=== PATIENT | male | born 2000 | race Caucasian/White ===

== ENCOUNTER 2019-08-26 23:52 | Emergency (ER) | payer SELFPAY ==
[~2019-08-26] VITALS: Ht 162.6 cm; Wt 59.0 kg
[2019-08-26 23:57] VITALS: Ht 162.6 cm; Wt 59.0 kg
[2019-08-27 00:34] LABS: BASOPHIL % 0.4 % (0-2); PLATELET COUNT 325 x10^3mcL (130-400); RED CELL DISTRIBUTION WIDTH 12.3 % (11.5-14.5)
[2019-08-27 00:54] LABS: CALCIUM 8.9 mg/dL (8.5-10.1); CARBON DIOXIDE 30.8 mmol/L (21-32); CHLORIDE SERUM 98 mmol/L (98-107); CREATININE SERUM 1.2 mg/dL (0.7-1.3); GFR1 > 60 mL/min; GLUCOSE SERUM 111 mg/dL (74-106); POTASSIUM SERUM 3.7 mmol/L (3.5-5.1); SODIUM SERUM 137 mmol/L (136-145)
[2019-08-27 00:59] LABS: ALBUMIN 4.6 g/dL (3.4-5.0); ALKALINE PHOSPHATASE 65 U/L (46-116); ALT/SGPT 17 U/L (16-63); AST/SGOT 15 U/L (15-37); BILIRUBIN TOTAL 0.6 mg/dL (0.20-1.00); LIPASE 56 IU/L (73-393)
[2019-08-27 01:00] LABS: TOTAL PROTEIN, SERUM 8.3 g/dL (6.4-8.2)
[2019-08-27 02:46] VITALS: BP 112/74
== END 2019-08-27 02:46 | disposition home or self-care (01) ==
LOC: ED 23:52
DX: K29.70 Gastritis, unspecified, without bleeding (principal)
CPT/HCPCS: 36415

== ENCOUNTER 2020-10-19 10:54 | Emergency (ER) | payer BC ==
[~2020-10-19] VITALS: Ht 167.6 cm; Wt 59.0 kg
[2020-10-19 11:05] VITALS: BP 133/87; Ht 167.6 cm; Wt 59.0 kg
== END 2020-10-19 11:43 | disposition home or self-care (01) ==
LOC: ED 10:54
DX: A08.4 Viral intestinal infection, unspecified (principal)